=== PATIENT | male | born 1950 | race Caucasian/White ===

== ENCOUNTER → 2021-07-05 | Outpatient (CLI) | payer MEDICARE ==
[2021-07-05 17:50] LABS: Appearance,Urine Clear (Clear); Bilirubin,Urine Negative (Negative); Blood,Urine Negative (Negative); Color,Urine Yellow; Glucose,Urine (UA) Negative (Negative); Ketones,Urine Negative (Negative); Leukocyte Esterase,Urine Negative (Negative); Nitrite,Urine Negative (Negative); PH, Urine 5.5 (5.0-8.0); Protein,Urine Trace (Negative); Urobilinogen,Urine <2.0 mg/dL (<2.0)
[2021-07-05 22:31] LABS: HCT 49.4 % (39.6-50.0); HGB 15.6 g/dL (13.0-17.0); MCH 28.3 pg (27.0-32.0); MCHC 31.6 g/dL (32.0-37.0); MCV 89.7 fL (80.0-97.0); Platelet Count 217 X 10*3/uL (140-440); RBC 5.51 X 10*6/uL (4.40-5.60); RDW 12.6 % (11.5-14.5); WBC 7.42 X 10*3/uL (4.50-10.00)
[2021-07-06 01:42] LABS: ALT 21 U/L (10-49); AST 19 U/L (14-35); African American GFR (CKD) 91.2 (60.0-200.0); Albumin 4.4 g/dL (3.8-4.9); Alkaline Phosphatase 66 U/L (41-126); BUN/Creat Ratio 19.17 Ratio (12.00-20.00); Blood Urea Nitrogen 18.4 mg/dL (9.0-27.0); Calcium 9.5 mg/dL (8.7-10.3); Carbon Dioxide 26.4 mmol/L (21.6-31.8); Chloride 102 mmol/L (96-109); Chol/HDL Ratio 4.54 Ratio; Globulin 2.5 g/dL (1.6-3.3); Glucose 90 mg/dL (70-110); LDL Cholesterol,Calculated 115.5 mg/dL (0.0-131.0); Non-African American GFR(CKD) 78.7 (60.0-200.0); Potassium 4.4 mmol/L (3.5-5.5); Sodium 141 mmol/L (135-145); Total Protein 6.9 g/dL (6.2-8.2)
[2021-07-06 02:20] LABS: Vitamin B12 >2000.0 pg/mL (200.0-944.0)
== END | disposition home or self-care (01) ==
LOC: LABWHC1 14:47
PROVIDERS: ATTEND Internal Medicine
DX: Z00.00 Encounter for general adult medical examination without abnormal findings (principal); E78.2 Mixed hyperlipidemia; E55.9 Vitamin D deficiency, unspecified; R53.83 Other fatigue; R79.89 Other specified abnormal findings of blood chemistry
CPT/HCPCS: 36415; 80053; 80061; 81003; 82306; 82607; 83036; 84153; 84402; 84403; 84439; 84443; 85027

== ENCOUNTER → 2021-07-28 | Outpatient (CLI) | payer MEDICARE ==
[2021-07-29 00:46] LABS: T4, Free (Free Thyroxine) 1.51 ng/dL (0.800-1.800)
== END | disposition home or self-care (01) ==
LOC: LABWHC1 15:38
PROVIDERS: ATTEND Internal Medicine Endocrinology, Diabetes & Metabolism
DX: E05.90 Thyrotoxicosis, unspecified without thyrotoxic crisis or storm (principal)
CPT/HCPCS: 36415; 84439; 84443; 84445; 84481; 86376

== ENCOUNTER → 2021-08-18 | Outpatient (CLI) | payer MEDICARE ==
--- NOTE | 2021-08-19 09:18 | NM ---
EXAMINATION TYPE: NM thyroid image w uptake DATE OF EXAM: 08/19/2021 COMPARISON: No thyroid ultrasound correlation available HISTORY: 71-year-old male E05.80, thyroid toxicosis TECHNIQUE: Thyroid iodine uptake is calculated and images performed after the oral administration of 306 uCi 1-123 Capsule. FINDINGS: Thyroid scan images show areas of nodular uptake throughout the thyroid gland, possible warm nodules, one each in the bilateral lower lobes and one in the thyroid isthmus. The 4 hour iodine uptake is calculated at 8.9% (normal range 8-14%). The 24-hour iodine uptake is calculated at 22.8% (normal range 15-35%). IMPRESSION: 1. Some nodular areas of uptake identified in the thyroid gland. Correlate with findings on thyroid u ltrasound to assess for underlying nodules and to determine the need for FNA. 2. Thyroid uptake measurements fall within the acceptable range.
== END | disposition home or self-care (01) ==
LOC: RADNMMAIN 08:34
PROVIDERS: ATTEND Internal Medicine Endocrinology, Diabetes & Metabolism
DX: E05.80 Other thyrotoxicosis without thyrotoxic crisis or storm (principal)
CPT/HCPCS: 78014; A9516

== ENCOUNTER 2021-09-11 18:13 | Emergency (ER) | payer MEDICARE ==
[2021-09-11 19:03] VITALS: TEMP 97.8
--- NOTE | 2021-09-11 19:49 | XR ---
EXAMINATION TYPE: XR knee complete RT DATE OF EXAM: 09/11/2021 COMPARISON: NONE HISTORY: Knee pain. Skiing accident. TECHNIQUE: 3 views FINDINGS: There is moderate knee joint effusion. I see no fracture nor dislocation. Patella is intact . There is spurring on the superior patella. IMPRESSION: Knee joint effusion. No fracture seen.
[2021-09-11] MEDS ORDERED: IBUPROFEN 600 MG STARTER PACK 4 TAB BTL PO STA (19:52)
--- NOTE | 2021-09-11 19:58 | ED ---
Lower Extremity Injury HPI - General Chief Complaint: Extremity Injury, Lower Stated Complaint: knee injury Time Seen by Provider: 09/11/21 19:28 Source: patient Mode of arrival: wheelchair - History of Present Illness Initial Comments: 71 year-old male patient presents to the emergency department for evaluation of right knee pain. Patient states he was skiing when he fell. States his right ski was stuck in the snow at an odd angle. States it pulled his knee. States when he tries to walk he has significant pain. States the knee is swollen. States he is able to fully extend and flex the knee. Denies numbness or tingling to the leg. Denies hitting his head. Denies any neck pain, back pain, or any other injuries. He denies any use of blood thinners. Patient denies any headache, chest pain, shortness of breath, dizziness, weakness, abdominal pain, nausea, vomiting, or difficulties with bowel movements or urination. - Related Data Previous Rx's Medication Instructions Recorded Ibuprofen [Motrin] 600 mg PO Q8HR PRN #30 tab 09/11/21 Allergies Allergy/AdvReac Type Severity Reaction Status Date / Time No Known Allergies Allergy Verified 09/11/21 19:03 Review of Systems ROS Statement: Those systems with pertinent positive or pertinent negative responses have been documented in the HPI. ROS Other: All systems not noted in ROS Statement are negative. Past Medical History History of Any Multi-Drug Resistant Organisms: None Reported Past Surgical History: Hernia Repair Past Psychological History: No Psychological Hx Reported Smoking Status: Never smoker Past Alcohol Use History: None Reported Past Drug Use History: None Reported General Exam General appearance: alert, in no apparent distress, other (This is a well- developed, well-nourished adult male in no acute distress.) Head exam: Present: atraumatic, normocephalic, normal inspection Eye exam: Present: normal appearance, PERRL, EOMI. Absent: scleral icterus, conjunctival injection, periorbital swelling ENT exam: Present: normal exam, normal oropharynx Neck exam: Present: normal inspection, full ROM, other (Nontender, no step-off, no deformity to firm midline palpation of the posterior cervical spine. Full range of motion without pain or limitation.). Absent: tenderness, meningismus, lymphadenopathy Respiratory exam: Present: normal lung sounds bilaterally. Absent: respiratory distress, wheezes, rales, rhonchi, stridor Cardiovascular Exam: Present: normal rhythm, tachycardia, normal heart sounds. Absent: systolic murmur, diastolic murmur, rubs, gallop, clicks GI/Abdominal exam: Present: soft, normal bowel sounds. Absent: distended, tenderness, guarding, rebound, rigid Extremities exam: Present: full ROM, normal capillary refill, other (Full extension and full flexion. Soft tissue swelling to the anterior knee. Skin to the leg is pink, warm, dry. Cap refill less than 3 seconds. Pedal and posttibial pulses 2+. No laxity with valgus/varus maneuvers. Negative drawer tests.). Absent: tenderness, pedal edema, joint swelling, calf tenderness Neurological exam: Present: alert, oriented X3, CN II-XII intact Psychiatric exam: Present: normal affect, normal mood Skin exam: Present: warm, dry, intact, normal color. Absent: rash Course Vital Signs 09/11/21 18:55 Temperature 97.8 F Pulse Rate 107 H Respiratory 18 Rate Blood Pressure 137/73 O2 Sat by Pulse 96 Oximetry Medical Decision Making - Medical Decision Making 71-year-old male patient presents to the emergency department today for evaluation of right knee pain after injury while skiing. Physical examination did reveal soft tissue swelling to the knee. He has full extension and full range of motion with minimal pain. No laxity with valgus or varus maneuvers. Negative drawer tests. X-ray did show a knee joint effusion. He is placed in a knee immobilizer given crutches. He is instructed to follow-up with orthopedics for further evaluation as soon as possible. Return parameters were discussed in detail. He verbalizes understanding and agrees with this plan. My attending is Dr. Brennan. - Radiology Data Radiology results: report reviewed, image reviewed 3 views of the right knee are obtained. Report is reviewed in its entirety. Impression by Dr. Meek shows knee joint effusion. No fracture seen. Disposition Clinical Impression: Right knee pain Disposition: HOME SELF-CARE Condition: Good Instructions (If sedation given, give patient instructions): Knee Sprain (ED) Additional Instructions: Use immobilizer while up walking. Follow up with orthopedics for further evaluation as soon as possible. Return to the emergency department for any new, worsening, or concerning symptoms. Prescriptions: Ibuprofen [Motrin] 600 mg PO Q8HR PRN #30 tab PRN Reason: Pain Is patient prescribed a controlled substance at d/c from ED?: No Referrals: Albina Shankar MD [Primary Care Provider] - 1-2 days Magnus Silva MD [STAFF PHYSICIAN] - 1-2 days Time of Disposition: 19:57
[2021-09-11 20:30] VITALS: BP 136/76; PULSE 87; RESP 20
== END 2021-09-11 20:30 | disposition home or self-care (01) ==
LOC: EC 18:13
DX: M25.461 Effusion, right knee (principal)
CPT/HCPCS: 99283; 73562; L1830

== ENCOUNTER → 2021-09-30 | Outpatient (CLI) | payer MEDICARE ==
--- NOTE | 2021-10-01 05:24 | MR ---
EXAMINATION TYPE: MR knee RT wo con DATE OF EXAM: 09/30/2021 COMPARISON: None HISTORY: Right outer knee pain and swelling for 3 weeks Multiplanar multiecho imaging of the right knee performed without contrast. The anterior and posterior cruciate ligaments are intact. There is knee joint effusion. Patella is in tact. There is patchy increased signal in the proximal tibia. There is transverse fracture line throu gh the base of the tibial spines. There is also vertical fracture through the lateral tibial condyle. There is no significant displacement. There is at least partial tear of the lateral collateral ligament. The medial collateral ligament laz ears intact. There is abnormal increased signal throughout most of the posterior horn of the medial meniscus. Ther e is some thinning of the posterior horn of the lateral meniscus with increased signal. The distal fe mur is intact. IMPRESSION: There is nondisplaced vertical fracture through the lateral tibial condyle. There is oblique fracture through the base of the tibial spines. No displacement. Knee joint effusion. Complex tear posterior horn medial meniscus. There is also tear on the inferior surface of the equipment associate ior horn lateral meniscus. Partial tear of the lateral collateral ligament. Subcutaneous edema around the knee joint.
== END | disposition home or self-care (01) ==
LOC: RADMRIMAIN 13:07
PROVIDERS: ATTEND Orthopaedic Surgery
DX: S82.124A Nondisplaced fracture of lateral condyle of right tibia, initial encounter for closed fracture (principal); S82.111A Displaced fracture of right tibial spine, initial encounter for closed fracture; S83.241A Other tear of medial meniscus, current injury, right knee, initial encounter; S83.281A Other tear of lateral meniscus, current injury, right knee, initial encounter; S83.511A Sprain of anterior cruciate ligament of right knee, initial encounter

== ENCOUNTER → 2021-10-28 | Outpatient (CLI) | payer MEDICARE ==
[2021-10-28 18:26] LABS: Anion Gap 10.3 mmol/L (10.00-18.00); Basophils # (A) 0.09 X 10*3/uL (0.00-0.10); Basophils % (A) 1.1 %; Carbon Dioxide 24.7 mmol/L (20.0-27.5); Eosinophils # (A) 0.39 X 10*3/uL (0.04-0.35); HCT 46.1 % (39.6-50.0); HGB 15.2 g/dL (13.0-17.0); Immature Grans, Automated 0.3 %; Lymphocytes # (A) 1.71 X 10*3/uL (0.90-5.00); Lymphocytes % (A) 21.7 %; MCH 28.8 pg (27.0-32.0); MCV 87.5 fL (80.0-97.0); Monocytes # (A) 0.76 X 10*3/uL (0.20-1.00); Monocytes % (A) 9.7 %; NRBC Per 100 WBC 0 /100 WBCS (0.0-0.0); Neutrophils % (A) 62.2 %; Platelet Count 188 X 10*3/uL (140-440); Potassium 4.5 mmol/L (3.5-5.5); RBC 5.27 X 10*6/uL (4.40-5.60); RDW 13.2 % (11.5-14.5); WBC 7.87 X 10*3/uL (4.50-10.00)
== END | disposition home or self-care (01) ==
LOC: LABPAT 11:27
PROVIDERS: ATTEND Orthopaedic Surgery
DX: Z01.812 Encounter for preprocedural laboratory examination (principal); M23.91 Unspecified internal derangement of right knee
CPT/HCPCS: 80051; 85025; 93005

== ENCOUNTER 2021-11-05 10:58 | Day surgery (SDC) | payer MEDICARE ==
[2021-11-03 16:05] VITALS: BMI 28.8
[~2021-11-05 10:58] MED LIST: LACTATED RINGERS 1,000 ML IV SCH; LIDOCAINE 1% (10MG/ML) FOR IV START INTRADERMA PRN
[2021-11-05 11:53] VITALS: TEMP 97
[2021-11-05] MEDS ORDERED: LIDOCAINE 1% INJ 10MG/ML (20 ML MDV) ONE (12:59)
[2021-11-05] MEDS ORDERED: PROPOFOL 10 MG/ML 20 ML VIAL IV ONE (12:59)
--- NOTE | 2021-11-05 13:16 | P.PCN ---
Date of Procedure: 11/05/21 Procedure(s) Performed: BRIEF HISTORY: Patient is a 71-year-old pleasant 1 male scheduled for an elective colonoscopy as a part of evaluation of prior history of colon polyps. Last colonoscopy was 5 years ago. PROCEDURE PERFORMED: Colonoscopy. PREOPERATIVE DIAGNOSIS: History of colon polyps. IV sedation per Anesthesia. PROCEDURE: After informed consent was obtained, the patient, was brought into the endoscopy unit. IV sedation was administered by Anesthesia under continuous monitoring. Digital rectal examination was normal. Initially the Olympus CF-160 flexible video colonoscope was then inserted in the rectum, gradually advanced into the cecum without any difficulty. Careful examination was performed as the scope was gradually being withdrawn. Ileocecal valve and the appendiceal orifice were visualized and appeared normal. Prep was excellent. Mucosa of the cecum, ascending colon, transverse colon, descending colon, sigmoid colon, and rectum appeared normal. Scattered sigmoid diverticulosis. Retroflexion was performed in the rectum and no lesions were seen. The patient tolerated the procedure well. IMPRESSION: Normal-appearing colon from rectum to cecum with no evidence of colorectal neoplasia. Scattered sigmoid diverticulosis RECOMMENDATIONS: Findings of this examination were discussed with the patientas well as his family. He was advised to have a repeat colonoscopy in 5 years from now because of the prior history of colon polyps..
[2021-11-05 13:40] VITALS: BP 147/74; PULSE 82; RESP 18
== END 2021-11-05 14:13 | disposition home or self-care (01) ==
LOC: ORWHC2ENDO 10:58
PROVIDERS: ATTEND Internal Medicine Gastroenterology
DX: Z86.010 Personal history of colon polyps (principal)
CPT/HCPCS: G0105; J2001; J2704; 45378

== ENCOUNTER → 2021-11-10 | Outpatient (CLI) | payer MEDICARE ==
[2021-11-10 14:21] LABS: T4, Free (Free Thyroxine) 1.01 ng/dL (0.800-1.800)
--- NOTE | 2021-11-10 21:04 | HP ---
HISTORY AND PHYSICAL REASON FOR ADMISSION: Surgery scheduled for 11/11/2021 HISTORY OF PRESENT ILLNESS: Ran Jeff is a 71-year-old patient seen with progressive right knee pain. We discussed options for treatment. He elected to proceed with right knee arthroscopy. Consent was obtained. PAST MEDICAL HISTORY: Noncontributory. SURGICAL HISTORY: Herniorrhaphy. DAILY MEDICATIONS: Ibuprofen. ALLERGIES: None. SOCIAL HISTORY: Denies tobacco use. PHYSICAL EVALUATION OF THE RIGHT KNEE: Range of motion is -3/4 to 115. Moderate effusion. Tenderness along the medial and lateral joint line. Positive medial Alvarez's. Positive lateral Alvarez's. Ligaments are stable. Hip rotation is without pain. Distal neurovascular exam is intact. RADIOGRAPHS: Radiographs of the right knee revealed mild osteoarthritis changes. MRI right knee revealed medial and lateral meniscal tears and evidence for previous lateral tibial plateau fracture. IMPRESSION: Internal derangement of the right knee with medial and lateral meniscal tears. PLAN: Right knee arthroscopy with partial medial/lateral meniscectomy and debridement. MMODL / IJN: [id number] /
== END | disposition home or self-care (01) ==
LOC: LABWHC1 10:04
PROVIDERS: ATTEND Internal Medicine Endocrinology, Diabetes & Metabolism
DX: E05.00 Thyrotoxicosis with diffuse goiter without thyrotoxic crisis or storm (principal)
CPT/HCPCS: 36415; 84439; 84443

== ENCOUNTER 2021-11-11 09:14 | Day surgery (SDC) | payer MEDICARE ==
[2021-11-03 16:14] VITALS: BMI 28.8
--- NOTE | 2021-11-10 21:04 | HP ---
HISTORY AND PHYSICAL REASON FOR ADMISSION: Surgery scheduled for 11/11/2021 HISTORY OF PRESENT ILLNESS: Ran Jeff is a 71-year-old patient seen with progressive right knee pain. We discussed options for treatment. He elected to proceed with right knee arthroscopy. Consent was obtained. PAST MEDICAL HISTORY: Noncontributory. SURGICAL HISTORY: Herniorrhaphy. DAILY MEDICATIONS: Ibuprofen. ALLERGIES: None. SOCIAL HISTORY: Denies tobacco use. PHYSICAL EVALUATION OF THE RIGHT KNEE: Range of motion is -3/4 to 115. Moderate effusion. Tenderness along the medial and lateral joint line. Positive medial Alvarez's. Positive lateral Alvarez's. Ligaments are stable. Hip rotation is without pain. Distal neurovascular exam is intact. RADIOGRAPHS: Radiographs of the right knee revealed mild osteoarthritis changes. MRI right knee revealed medial and lateral meniscal tears and evidence for previous lateral tibial plateau fracture. IMPRESSION: Internal derangement of the right knee with medial and lateral meniscal tears. PLAN: Right knee arthroscopy with partial medial/lateral meniscectomy and debridement. MMODL / IJN: [id number] /
[~2021-11-11 09:14] MED LIST changes: +DEXAMETHASONE SOD PHOSPHATE 4 MG/ML 1 ML VIAL IV ONE; +HYDROmorphone 0.5 MG/0.5 ML SYRINGE IVP PRN; -LIDOCAINE 1% (10MG/ML) FOR IV START INTRADERMA PRN; +ONDANSETRON 4 MG/2 ML VIAL IVP ONE
[2021-11-11] MEDS ORDERED: LIDOCAINE 1% INJ 10MG/ML (20 ML MDV) ONE (10:27)
[2021-11-11] MEDS ORDERED: HYDROmorphone (PF) 1 MG/ML ONE (10:27)
[2021-11-11] MEDS ORDERED: MIDAZOLAM 2 MG/2 ML VIAL ONE (10:27)
[2021-11-11] MEDS ORDERED: fentaNYL (PF) 50 MCG/ML 2 ML AMP ONE (10:27)
[2021-11-11] MEDS ORDERED: PROPOFOL 10 MG/ML 20 ML VIAL IV ONE (10:27)
[2021-11-11] MEDS ORDERED: BUPIVACAIN-EPI 0.25%-1:200,000 30 ML VIAL INTRAARTIC ONE (10:34)
[2021-11-11 11:24] VITALS: RESP 16; TEMP 96.8
--- NOTE | 2021-11-11 11:28 | P.OP ---
Date of Procedure: 11/11/21 Preoperative Diagnosis: Internal derangement right knee Postoperative Diagnosis: 1. Tear medial lateral meniscus right knee 2. 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 Reactive synovitis medial, lateral and suprapatellar compartments right knee Procedure(s) Performed: 1. Arthroscopic partial medial and lateral meniscectomy right knee 2. Arthroscopic microfracture lateral tibial plateau right knee 3. Arthroscopic partial synovectomy medial, lateral and suprapatellar compartments right knee Anesthesia: ARTUROA, local Surgeon: [place] Estimated Blood Loss (ml): 7 Pathology: none sent Condition: stable Disposition: PACU Indications for Procedure: 71-year-old gentleman seen with progressive right knee pain. After treatment options were discussed, he elected to proceed with arthroscopy. Operative Findings: See description of procedure Description of Procedure: Patient was taken to the operative suite. Patient underwent a general anesthetic by the department of anesthesia. Patient was given preoperative antibiotics. The right lower extremity was placed in a well-padded arthroscopic leg sykes. The right leg was prepped and draped in the normal sterile orthopedic fashion. A lateral parapatellar and suprapatellar incision was made. Trochars were inserted. Arthroscopy was initiated. Suprapatellar pouch revealed diffuse thick reactive synovitis. The patellofemoral joint appeared to articulate congruently. There was grade 1/2 chondromalacia of the patella with no significant osteochondral tears present. The scope was guided into the medial gutter. No loose bodies or plica were identified. The scope was then guided into the medial compartment. A medial parapatellar incision was made. Trocar inserted followed by probe. There was a complex tear involving the pos terior horn medial meniscus. There were grade 1/2 chondromalacia changes of the medial compartment with no obvious osteochondral tears present. There was thick reactive synovitis anteriorly. I performed a partial medial meniscectomy getting down to stable meniscal tissue. I performed a partial synovectomy decompressing the reactive synovitis. The residual meniscus was probed and was found to be stable. There was good decompression of synovitis. Scope and probe were then guided into the intercondylar notch. Cruciates were identified, probed and found to be stable. The scope and probe were then guided into lateral compartment. There was a complex tear involving the posterior horn and midbody of the lateral meniscus. There were grade 3/4 chondromalacia changes diffusely about the osteochondral surface of the tibial plateau. There was an area of exposed bone more anteriorly. There was some thick reactive synovitis anteriorly. I performed a partial lateral meniscectomy getting down to stable meniscal tissue. I performed a chondroplasty lateral tibial plateau getting down to stable osteochondral tissue. I performed a partial synovectomy decompressing the reactive synovitis anteriorly. The residual meniscus was probed and was found to be stable. The residual osteochondral surface of the lateral tibial plateau. Stable. There was good decompression of synovitis. I now performed a microfracture to the area of exposed bone anterior lateral tibial plateau and the microfracture awl penetrated the bone with resultant bleeding of the microfracture site. I probed the area was stable. The scope was in guided back into the suprapatellar compartment. I introduced a motorized shaver into the super patellar compartment. I debrided some piecemeal fragments of meniscus that I encountered. I performed a partial synovectomy. Shaver was removed. There was good decompression of the synovitis. I now took one more look around the entire knee. There was no residual debris. Instruments were now removed from the joint. The joint was infiltrated with .25% Marcaine. Steri-Strips were applied to the portal sites. Sterile dressings were applied. The patient was placed into a ANDREW hose. No tourniquet was utilized. The patient was awakened, transferred to a bed and taken to recovery stable satisfactory condition.
[2021-11-11] MEDS ORDERED: HYDROcodone/APAP 5-325MG 1 EACH TAB PO ONE (12:16)
[2021-11-11] MEDS ORDERED: HYDROcodone/APAP 5-325MG 1 EACH TAB ONE (12:16)
[2021-11-11 12:35] VITALS: BP 155/78; PULSE 92
== END 2021-11-11 13:02 | disposition home or self-care (01) ==
LOC: OR 09:14
PROVIDERS: ATTEND Orthopaedic Surgery
DX: M23.251 Derangement of posterior horn of lateral meniscus due to old tear or injury, right knee (principal); M23.221 Derangement of posterior horn of medial meniscus due to old tear or injury, right knee; Z79.899 Other long term (current) drug therapy; E05.90 Thyrotoxicosis, unspecified without thyrotoxic crisis or storm; Z87.442 Personal history of urinary calculi; Z79.890 Hormone replacement therapy
CPT/HCPCS: 29880; 29879; J2250; J1100; J0690; J2405; J2001; J3010; J1170 ×2; J2704

== ENCOUNTER → 2022-03-02 | Outpatient (CLI) | payer MEDICARE ==
[2022-03-02 10:36] LABS: T4, Free (Free Thyroxine) 1.21 ng/dL (0.800-1.800)
== END | disposition home or self-care (01) ==
LOC: LABWHC1 07:28
PROVIDERS: ATTEND Internal Medicine Endocrinology, Diabetes & Metabolism
DX: E05.90 Thyrotoxicosis, unspecified without thyrotoxic crisis or storm (principal); E05.00 Thyrotoxicosis with diffuse goiter without thyrotoxic crisis or storm
CPT/HCPCS: 36415; 84439; 84443

== ENCOUNTER → 2022-03-02 | Outpatient (CLI) | payer MEDICARE ==
--- NOTE | 2022-03-02 08:41 | CT ---
EXAMINATION TYPE: CT orbits wo con DATE OF EXAM: 03/02/2022 COMPARISON: None HISTORY: Rt eye vision loss CT DLP: 354 mGycm Automated exposure control for dose reduction was used. Helical imaging through the orbits without co ntrast FINDINGS: Lack of intravenous contrast could compromise sensitivity of the exam. Inflammatory changes are prese nt within the ethmoid air cells, maxillary sinuses, frontal sinus. Ostiomeatal units are patent. Ther e is a deviated nasal septum. Orbits show symmetric appearance. The globes are intact. No evident intraorbital mass. Optic nerves s how a symmetric appearance. Cerebral vascular calcifications are present. IMPRESSION: SINUS DISEASE DESCRIBED. NONCONTRAST EXAM. NO ABNORMALITY EVIDENT TO ACCOUNT FOR PATIENT'S SYMPTOM S.
== END | disposition home or self-care (01) ==
LOC: RADCTMAIN 06:34
PROVIDERS: ATTEND Ophthalmology
DX: J34.89 Other specified disorders of nose and nasal sinuses (principal)
CPT/HCPCS: 70480

== ENCOUNTER → 2022-11-02 | Outpatient (CLI) | payer MEDICARE ==
[2022-11-02 16:51] LABS: T4, Free (Free Thyroxine) 1.23 ng/dL (0.800-1.800)
== END | disposition home or self-care (01) ==
LOC: LABWHC1 09:08
PROVIDERS: ATTEND Internal Medicine Endocrinology, Diabetes & Metabolism
DX: E05.90 Thyrotoxicosis, unspecified without thyrotoxic crisis or storm (principal)
CPT/HCPCS: 36415; 84439; 84443; 84480